=== PATIENT | female | born 1960 | race African-American/Black ===

== ENCOUNTER 2018-11-04 14:32 | Inpatient (IN) | payer MEDICAID ==
[~2018-11-04] VITALS: Ht 170.2 cm; Wt 86.2 kg
[2018-11-04 15:36] LABS: BASOPHILS % 0.9 % (0.0-2.0); EOSINOPHILS % 0.1 % (0.0-5.0); HEMATOCRIT. 35.9 % (36.0-48.0); HEMOGLOBIN. 11.2 g/dL (12.0-16.0); LYMPHOCYTES % 34.3 % (20.0-50.0); MEAN CORPUSCULAR HEMOGLOBIN 25.8 pg (28.0-32.0); MEAN CORPUSCULAR VOLUME 83.1 fL (81.0-99.0); MEAN PLATELET VOLUME 8.2 fl (7.4-10.4); MONOCYTES % 6.2 % (2.0-8.0); NEUTROPHILS % 58.5 % (40.0-76.0); PLATELET 303 x1000/uL (130-400); RED BLOOD CELL COUNT 4.33 mill/uL (4.2-5.4); RED CELL DISTRIBUTION WIDTH 16.5 % (11.6-14.6)
[2018-11-04 15:37] LABS: CHLORIDE 109 mEq/L (98-107)
[2018-11-04] MEDS ORDERED: ONDANSETRON HCL 4MG/2ML INJ IV STA (15:53)
[2018-11-04] MEDS ORDERED: SODIUM CHLORIDE 0.9% 1000ML BAG (SEPSIS BOLUS) IV ONE (16:00)
[2018-11-04] MEDS ORDERED: ASPIRIN 325MG TABLET PO ONE (16:00)
[2018-11-04] MEDS ORDERED: LEVOFLOXACIN 500MG PREMIX 100 ML IV ONE (16:30)
[2018-11-04 16:53] LABS: CLARITY URINE CLOUDY (CLEAR); COLOR URINE YELLOW (YELLOW); KETONES URINE NEGATIVE (NEGATIVE); LEUKOCYTE ESTERASE URINE 3+ (NEGATIVE); NITRITE URINE NEGATIVE (NEGATIVE); OCCULT BLOOD URINE 1+ (NEGATIVE); PROTEIN URINE TRACE (NEGATIVE); SPECIFIC GRAVITY URINE 1.021 (1.005-1.030)
[2018-11-04] MEDS ORDERED: ONDANSETRON HCL 4MG/2ML INJ IV PRN (18:15)
[2018-11-04] MEDS ORDERED: FUROSEMIDE 40MG/4ML VIAL IVP SCH ×2 (18:15→18:30)
[2018-11-04] MEDS ORDERED: DEXTROSE 50% WATER 50ML SYRINGE IV PRN (18:15)
[2018-11-04] MEDS ORDERED: LEVOFLOXACIN 500MG PREMIX 100 ML IV SCH (18:15)
[2018-11-04] MEDS: INSULIN LISPRO 100 UNITS/ML SUBCUT SCH ×2 (18:35→23:13)
[2018-11-04 19:16] LABS: HEPATITIS B SURFACE ANTIGEN NEGATIVE
[2018-11-04 19:39] LABS: METHADONE URINE SCREEN NEGATIVE (NEGATIVE); OPIATES URINE SCREEN NEGATIVE (NEGATIVE)
[2018-11-04 19:40] LABS: *AMPHETAMINES SCREEN URINE NEGATIVE (NEGATIVE); *BARBITURATES SCREEN URINE NEGATIVE (NEGATIVE); *BENZODIAZEPINES SCREEN URINE NEGATIVE (NEGATIVE); *COCAINE SCREEN URINE NEGATIVE (NEGATIVE); CANNABINOID URINE SCREEN NEGATIVE (NEGATIVE); PHENCYCLIDINE URINE SCREEN NEGATIVE (NEGATIVE)
[2018-11-04 19:44] LABS: HEPATITIS A AB IGM NEGATIVE (NEGATIVE)
[2018-11-04] MEDS: ACETAMINOPHEN 325MG TABLET PO PRN (21:52)
[2018-11-04 21:56] VITALS: BP 148/79
[2018-11-04 22:00] VITALS: BP 103/78
[2018-11-04] MEDS: INSULIN GLARGINE UD 100 UNITS/ML SYR SUBCUT SCH (23:11)
[2018-11-04] MEDS ORDERED: PNEUMOCOCCAL 23-VAL P-SAC VAC 0.5 ML IM ONE (23:45)
[2018-11-05] VITALS (12 sets, daily range): BP systolic 90–130; BP diastolic 47–88
[2018-11-05] MEDS ORDERED: FURO20TA4 MT (00:34)
[2018-11-05] MEDS ORDERED: CLOP75TA33 MT (00:34)
[2018-11-05] MEDS ORDERED: GLYB2.5T4 PO (00:34)
[2018-11-05] MEDS ORDERED: QUET300T19 PO (00:34)
[2018-11-05] MEDS ORDERED: ASPI-1158 PO (00:34)
[2018-11-05] MEDS ORDERED: CEPH500C2 PO (00:34)
[2018-11-05] MEDS ORDERED: POTA-9 MT (00:34)
[2018-11-05] MEDS: BLOOD SUGAR DIAGNOSTIC STRIP TEST SCH ×4 (05:55→20:40)
[2018-11-05] MEDS: INSULIN LISPRO 100 UNITS/ML SUBCUT SCH ×4 (06:31→21:38)
[2018-11-05] MEDS: FUROSEMIDE 40MG/4ML VIAL IVP SCH ×3 (06:32→16:41)
[2018-11-05 07:29] LABS: BASOPHILS % 0.5 % (0.0-2.0); EOSINOPHILS % 0.8 % (0.0-5.0); HEMATOCRIT. 36.5 % (36.0-48.0); HEMOGLOBIN. 11.5 g/dL (12.0-16.0); LYMPHOCYTES % 42.1 % (20.0-50.0); MEAN CORPUSCULAR HEMOGLOBIN 25.9 pg (28.0-32.0); MEAN CORPUSCULAR VOLUME 82.3 fL (81.0-99.0); MEAN PLATELET VOLUME 8.2 fl (7.4-10.4); MONOCYTES % 7.1 % (2.0-8.0); NEUTROPHILS % 49.5 % (40.0-76.0); PLATELET 308 x1000/uL (130-400); RED BLOOD CELL COUNT 4.44 mill/uL (4.2-5.4)
[2018-11-05 07:38] LABS: CHLORIDE 108 mEq/L (98-107)
[2018-11-05] MEDS: ENOXAPARIN 30MG/0.3ML SYR SUBCUT SCH ×2 (08:26→21:40)
[2018-11-05] MEDS: INSULIN GLARGINE UD 100 UNITS/ML SYR SUBCUT SCH ×2 (09:45→22:10)
[2018-11-05] MEDS: CLOPIDOGREL 75MG TABLET PO SCH (13:45)
[2018-11-05] MEDS: ASPIRIN 81MG EC TABLET PO SCH (13:45)
[2018-11-05] MEDS: NITROGLYCERIN OINT 1GM/INCH UDPKT TD SCH ×2 (13:45→22:00)
[2018-11-05] MEDS: LEVOFLOXACIN 500MG PREMIX 100 ML IV SCH (16:33)
[2018-11-05] MEDS: ACETAMINOPHEN 325MG TABLET PO PRN (19:22)
[2018-11-05] MEDS: ATORVASTATIN CALCIUM 20MG TABLET PO SCH (21:39)
[2018-11-05] MEDS: METOPROLOL TARTRATE 25MG TABLET PO SCH (21:40)
[2018-11-06] VITALS (12 sets, daily range): BP systolic 94–127; BP diastolic 43–88
[2018-11-06] MEDS: BLOOD SUGAR DIAGNOSTIC STRIP TEST SCH ×4 (05:54→20:38)
[2018-11-06] MEDS: NITROGLYCERIN OINT 1GM/INCH UDPKT TD SCH ×3 (06:00→22:56)
[2018-11-06] MEDS: ACETAMINOPHEN 325MG TABLET PO PRN (06:08)
[2018-11-06 06:11] LABS: CHLORIDE 107 mEq/L (98-107)
[2018-11-06 06:20] LABS: BASOPHILS % 0.3 % (0.0-2.0); EOSINOPHILS % 1.2 % (0.0-5.0); HEMOGLOBIN. 11.1 g/dL (12.0-16.0); MEAN CORPUSCULAR HEMOGLOBIN 25.9 pg (28.0-32.0); MEAN CORPUSCULAR VOLUME 81.9 fL (81.0-99.0); MONOCYTES % 7.2 % (2.0-8.0); NEUTROPHILS % 46.3 % (40.0-76.0); PLATELET 302 x1000/uL (130-400); RED BLOOD CELL COUNT 4.28 mill/uL (4.2-5.4); RED CELL DISTRIBUTION WIDTH 16.3 % (11.6-14.6)
[2018-11-06] MEDS: INSULIN LISPRO 100 UNITS/ML SUBCUT SCH ×4 (06:23→21:56)
[2018-11-06] MEDS: FUROSEMIDE 40MG/4ML VIAL IVP SCH ×2 (06:27→17:04)
[2018-11-06] MEDS: CLOPIDOGREL 75MG TABLET PO SCH (08:39)
[2018-11-06] MEDS: METOPROLOL TARTRATE 25MG TABLET PO SCH ×2 (08:39→21:00)
[2018-11-06] MEDS: ASPIRIN 81MG EC TABLET PO SCH (08:39)
[2018-11-06] MEDS: ENOXAPARIN 30MG/0.3ML SYR SUBCUT SCH (08:51)
[2018-11-06] MEDS: PANTOPRAZOLE 40MG DR TABLET PO SCH (09:54)
[2018-11-06] MEDS: INSULIN GLARGINE UD 100 UNITS/ML SYR SUBCUT SCH ×2 (09:55→21:56)
[2018-11-06] MEDS: QUETIAPINE FUMARATE 50MG TABLET PO SCH (11:00)
[2018-11-06] MEDS: LEVOFLOXACIN 500MG PREMIX 100 ML IV SCH (17:04)
[2018-11-06] MEDS: ATORVASTATIN CALCIUM 20MG TABLET PO SCH (21:57)
[2018-11-07] VITALS (13 sets, daily range): BP systolic 96–124; BP diastolic 40–81
[2018-11-07] MEDS: PANTOPRAZOLE 40MG DR TABLET PO SCH (06:37)
[2018-11-07] MEDS: NITROGLYCERIN OINT 1GM/INCH UDPKT TD SCH ×3 (06:38→21:13)
[2018-11-07] MEDS: FUROSEMIDE 40MG/4ML VIAL IVP SCH ×2 (06:40→16:54)
[2018-11-07] MEDS: BLOOD SUGAR DIAGNOSTIC STRIP TEST SCH ×4 (06:48→21:07)
[2018-11-07 07:07] LABS: BASOPHILS % 0.3 % (0.0-2.0); EOSINOPHILS % 1.4 % (0.0-5.0); HEMATOCRIT. 34.7 % (36.0-48.0); HEMOGLOBIN. 11.1 g/dL (12.0-16.0); LYMPHOCYTES % 35.9 % (20.0-50.0); MEAN CORPUSCULAR HEMOGLOBIN 25.9 pg (28.0-32.0); MEAN PLATELET VOLUME 8.3 fl (7.4-10.4); MONOCYTES % 6.8 % (2.0-8.0); NEUTROPHILS % 55.6 % (40.0-76.0); PLATELET 307 x1000/uL (130-400); RED BLOOD CELL COUNT 4.28 mill/uL (4.2-5.4); RED CELL DISTRIBUTION WIDTH 16.2 % (11.6-14.6)
[2018-11-07 07:11] LABS: CHLORIDE 104 mEq/L (98-107)
[2018-11-07] MEDS: INSULIN LISPRO 100 UNITS/ML SUBCUT SCH ×4 (07:20→21:09)
[2018-11-07] MEDS: METOPROLOL TARTRATE 25MG TABLET PO SCH ×2 (09:00→21:00)
[2018-11-07] MEDS: QUETIAPINE FUMARATE 50MG TABLET PO SCH (09:00)
[2018-11-07] MEDS: CLOPIDOGREL 75MG TABLET PO SCH (09:30)
[2018-11-07] MEDS: ASPIRIN 81MG EC TABLET PO SCH (09:30)
[2018-11-07] MEDS: ENOXAPARIN 40MG/0.4ML SYR SUBCUT SCH (09:31)
[2018-11-07] MEDS: INSULIN GLARGINE UD 100 UNITS/ML SYR SUBCUT SCH (09:31)
[2018-11-07] MEDS ORDERED: IPRATROPIUM/ALBUTEROL 0.5-3(2.5)MG/3ML NEB HHN PRN (11:00)
[2018-11-07] MEDS: LEVOFLOXACIN 500MG PREMIX 100 ML IV SCH (16:48)
[2018-11-07] MEDS: IPRATROPIUM/ALBUTEROL 0.5-3(2.5)MG/3ML NEB HHN SCH ×2 (17:10→21:19)
[2018-11-07] MEDS: BUDESONIDE 0.5MG/2ML NEB HHN SCH ×2 (17:10→21:18)
[2018-11-07] MEDS ORDERED: POTASSIUM CHLORIDE 20MEQ/PACKET PO NR (18:15)
[2018-11-07] MEDS: ATORVASTATIN CALCIUM 20MG TABLET PO SCH (21:14)
[2018-11-08] VITALS (8 sets, daily range): BP systolic 88–111; BP diastolic 52–75
[2018-11-08] MEDS: IPRATROPIUM/ALBUTEROL 0.5-3(2.5)MG/3ML NEB HHN SCH ×3 (00:54→15:00)
[2018-11-08] MEDS: INSULIN GLARGINE UD 100 UNITS/ML SYR SUBCUT SCH ×2 (05:39→09:43)
[2018-11-08] MEDS: FUROSEMIDE 40MG/4ML VIAL IVP SCH (06:38)
[2018-11-08] MEDS: BLOOD SUGAR DIAGNOSTIC STRIP TEST SCH ×2 (06:39→11:57)
[2018-11-08] MEDS: NITROGLYCERIN OINT 1GM/INCH UDPKT TD SCH (06:39)
[2018-11-08] MEDS: INSULIN LISPRO 100 UNITS/ML SUBCUT SCH ×2 (06:39→12:17)
[2018-11-08 07:08] LABS: BASOPHILS % 0.3 % (0.0-2.0); EOSINOPHILS % 1.4 % (0.0-5.0); LYMPHOCYTES % 27.6 % (20.0-50.0); MEAN CORPUSCULAR HEMOGLOBIN 26.1 pg (28.0-32.0); MEAN CORPUSCULAR VOLUME 80.6 fL (81.0-99.0); MEAN PLATELET VOLUME 8.3 fl (7.4-10.4); MONOCYTES % 6.6 % (2.0-8.0); NEUTROPHILS % 64.1 % (40.0-76.0); PLATELET 327 x1000/uL (130-400); RED BLOOD CELL COUNT 4.22 mill/uL (4.2-5.4); RED CELL DISTRIBUTION WIDTH 16.2 % (11.6-14.6)
[2018-11-08 07:48] LABS: CHLORIDE 102 mEq/L (98-107)
[2018-11-08 08:07] LABS: HIV SCREEN 4G Non Reactive (Non Reactive)
[2018-11-08] MEDS: CLOPIDOGREL 75MG TABLET PO SCH (08:13)
[2018-11-08] MEDS: ASPIRIN 81MG EC TABLET PO SCH (08:13)
[2018-11-08] MEDS: QUETIAPINE FUMARATE 50MG TABLET PO SCH (08:13)
[2018-11-08] MEDS: METOPROLOL TARTRATE 25MG TABLET PO SCH (08:14)
[2018-11-08] MEDS: ENOXAPARIN 40MG/0.4ML SYR SUBCUT SCH (08:14)
[2018-11-08] MEDS ORDERED: FAMOTIDINE 20MG TABLET PO SCH (09:00)
[2018-11-08] MEDS: BUDESONIDE 0.5MG/2ML NEB HHN SCH (09:00)
[2018-11-16] MEDS ORDERED: FURO-151 MT (05:18)
[2018-11-16] MEDS ORDERED: METF-416 MT (05:19)
[2018-11-16] MEDS ORDERED: METO-396 MT (05:20)
[2018-11-16] MEDS ORDERED: NITR0.4T49 SL (05:20)
== END 2018-11-08 14:48 | disposition home or self-care (01) | DRG 720 ==
LOC: ER 14:32 → ENRESERV 19:10 → 3WST 21:20 → EDBEDREQ 21:20 → 3WST 11-05 14:32
PROVIDERS: ADMIT Internal Medicine; ATTEND Internal Medicine
DX: A41.9 Sepsis, unspecified organism (principal); J96.00 Acute respiratory failure, unspecified whether with hypoxia or hypercapnia; I50.43 Acute on chronic combined systolic (congestive) and diastolic (congestive) heart failure; E46 Unspecified protein-calorie malnutrition; R16.0 Hepatomegaly, not elsewhere classified; J44.1 Chronic obstructive pulmonary disease with (acute) exacerbation; I27.22 Pulmonary hypertension due to left heart disease; Z99.81 Dependence on supplemental oxygen; N39.0 Urinary tract infection, site not specified; I11.0 Hypertensive heart disease with heart failure; K76.0 Fatty (change of) liver, not elsewhere classified; I25.10 Atherosclerotic heart disease of native coronary artery without angina pectoris; R65.20 Severe sepsis without septic shock; E11.9 Type 2 diabetes mellitus without complications; E66.9 Obesity, unspecified; I08.8 Other rheumatic multiple valve diseases; B19.10 Unspecified viral hepatitis B without hepatic coma; R74.0 Nonspecific elevation of levels of transaminase and lactic acid dehydrogenase [LDH]; K74.60 Unspecified cirrhosis of liver; Z68.29 Body mass index [BMI] 29.0-29.9, adult; I25.2 Old myocardial infarction; Z87.891 Personal history of nicotine dependence; Z95.5 Presence of coronary angioplasty implant and graft
CPT/HCPCS: 36415; 71045; 76700; 80048; 80061; 80305; 82962; 83036; 83605; 83880; 84145; 84443; 84484; 86705; 86706; 86709; 86803; 87340; 87389; 90732; 93005; 93306; 93970; 94640; 96365; 96375; 99291; J1650; J1815; J1940; J1956; J2405; J7030; J7050; J7620; J7626